=== PATIENT | female | born 1965 | race African-American/Black ===

== ENCOUNTER 2016-11-03 17:56 | Inpatient (IN) | payer MEDICARE, OTHER ==
[2016-11-03 18:46] LABS: Basophils # (A) 0.1 k/uL (0-0.2); Basophils % (A) 0 %; CH 25.9; CHCM 30.6; Eosinophils # (A) 0.4 k/uL (0-0.7); Eosinophils % (A) 3 %; HCT 36.1 % (34.0-46.0); HDW 2.58; HGB 11.1 gm/dL (11.4-16.0); Hypochromasia Moderate; Luc # (Auto) 0.29; Luc % (Auto) 2; Lymphocytes # (A) 1.9 k/uL (1.0-4.8); Lymphocytes % (A) 15 %; MCH 26.1 pg (25.0-35.0); MCHC 30.7 g/dL (31.0-37.0); MCV 85.2 fL (80.0-100.0); Mean Platelet Volume 7.8; Monocytes # (A) 0.6 k/uL (0-1.0); Monocytes % (A) 5 %; Neutrophils # (A) 9.1 k/uL (1.3-7.7); Neutrophils % (A) 74 %; RBC 4.23 m/uL (3.80-5.40); RDW 13.4 % (11.5-15.5); WBC 12.3 k/uL (3.8-10.6); WBC (Perox) 12.58
[2016-11-03 18:58] LABS: INR 1.1 (<1.1); Partial Thromboplastin Time 28.4 sec (22.0-30.0); Prothrombin Time 11.3 sec (9.0-12.0)
[2016-11-03 18:59] LABS: ALT 27 U/L (9-52); AST 26 U/L (14-36); Alkaline Phosphatase 123 U/L (38-126); Anion Gap 12 mmol/L; Blood Urea Nitrogen 15 mg/dL (7-17); Calcium 9.7 mg/dL (8.4-10.2); Carbon Dioxide 28 mmol/L (22-30); Chloride 101 mmol/L (98-107); Glucose 101 mg/dL (74-99); Non-African American GFR(MDRD) >60 (>60 ml/min/1.73 sqM); Potassium 4.4 mmol/L (3.5-5.1); Sodium 141 mmol/L (137-145); Total Bilirubin 0.4 mg/dL (0.2-1.3); Total Protein 8.8 g/dL (6.3-8.2)
[2016-11-03] MEDS ORDERED: RX INFO: IV CONTRAST WAS GIVEN 1 EACH MISC MISCELLANE PRN (19:09)
[2016-11-03] MEDS ORDERED: LEVOFLOXACIN 750MG-D5W PMX 750 MG in DEXTROSE/WATER 1 150ML.BAG IVPB STA (19:09)
[2016-11-03] MEDS ORDERED: MORPHINE SULFATE 4 MG/ML SYRINGE IV STA (19:15)
--- NOTE | 2016-11-03 19:28 | XR ---
EXAMINATION TYPE: XR chest 1V portable DATE OF EXAM: 11/03/2016 7:05 PM COMPARISON: 08/25/2010 HISTORY: Fever TECHNIQUE: Single frontal view of the chest is obtained. FINDINGS: Heart and mediastinum are normal. Lungs are clear. Diaphragm is normal. Bony thorax is int act. IMPRESSION: Normal chest. No adverse change compared to old exam.
[2016-11-03] MEDS ORDERED: ACETAMINOPHEN IVPB ONE (20:00)
[2016-11-03] MEDS ORDERED: IV VANCOMYCIN PER PHARMACY 1 EACH MISC MISCELLANE PRN (21:21)
[2016-11-03] MEDS ORDERED: NALOXONE 0.4 MG/ML 1 ML VIAL IV PRN (21:22)
[2016-11-03] MEDS ORDERED: MAGNESIUM HYDROXIDE 2,400 MG/10 ML CUP PEG/G-TUBE PRN (21:23)
[2016-11-03] MEDS ORDERED: NA PHOS,M-B/NA PHOS,DI-BA 133 ML ENEMA RECTAL PRN (21:23)
[2016-11-03] MEDS ORDERED: BISACODYL 10 MG SUPP RECTAL PRN (21:23)
[2016-11-03] MEDS ORDERED: ACETAMINOPHEN TAB 325 MG TAB PEG/G-TUBE PRN (21:23)
[2016-11-03] MEDS ORDERED: VANCOMYCIN 1,000 MG in SODIUM CHLORIDE 0.9% 250 ML IVPB STA (21:33)
--- NOTE | 2016-11-03 21:34 | ED ---
Skin/Abscess/FB HPI - General Chief complaint: Skin/Abscess/Foreign Body Stated complaint: facial abscess Time Seen by Provider: 11/03/16 18:11 Source: patient, EMS Mode of arrival: EMS Limitations: altered mental status, physical limitation - History of Present Illness Initial comments: This patient is a 51-year-old woman with history of [place]'s disease, [facility] for scalp drainage, erythema, and some erythema spreading to the neck. I am unable to obtain the exact onset of symptoms. There is family member at bedside who had noted things and had her transferred here. The patient is not able to give any history due to being nonverbal. MD complaint: abscess/boil -: unknown Tetanus Up to Date: unsure Location: head Improves with: none Worsens with: none Treatments Prior to Arrival: none - Related Data Home Medications Medication Instructions Recorded Confirmed Baclofen 10 mg PEG/G-TUBE TID@0600,1200,2100 11/03/16 11/03/16 Bisacodyl [Dulcolax] 10 mg RECTAL ONCE PRN 11/03/16 11/03/16 Chlorhexidine Gluconate [Peridex] 1 applic PO BID 11/03/16 11/03/16 Docusate [Colace] 100 mg PEG/G-TUBE BID@0800,1700 11/03/16 11/03/16 Jevity 1.5 Mark Liquid 1 can PEG/G-TUBE TID@0600,1400,2200 11/03/16 11/03/16 Levothyroxine Sodium [Synthroid] 100 mcg PEG/G-TUBE DAILY@0600 11/03/16 11/03/16 Magnesium Hydroxide [Milk of 2,400 mg PEG/G-TUBE ONCE PRN 11/03/16 11/03/16 Magnesia] Na Phos,M-B/Na Phos,Di-Ba [Fleet 133 ml RECTAL ONCE PRN 11/03/16 11/03/16 Adult] Vits A and D/White Pet/Lanolin [A 1 applic TOPICAL DAILY 11/03/16 11/03/16 and D Ointment] Previous Rx's Medication Instructions Recorded Cephalexin [Keflex] 500 mg PO Q8HR #30 cap 11/07/16 Acetaminophen [Tylenol] 650 mg PEG/G-TUBE Q8HR PRN #0 11/08/16 HYDROcodone/APAP 10-325MG [[place] 1 tab PEG/G-TUBE Q4HR PRN #60 tab 11/08/16 10-325] clonazePAM [KlonoPIN] 0.5 mg PEG/G-TUBE BID@0800,1700 11/08/16 #60 tab fentaNYL 50MCG/HR PATCH [Duragesic 1 patch TRANSDERM Q72H #10 patch 11/08/16 50MCG/HR] Allergies Allergy/AdvReac Type Severity Reaction Status Date / Time Penicillins Allergy Unknown Swelling Verified 11/05/16 12:52 paroxetine [From Paxil] Allergy Unknown Verified 11/03/16 18:58 Review of Systems ROS Statement: Those systems with pertinent positive or pertinent negative responses have been documented in the HPI. ROS Other: All systems not noted in ROS Statement are negative. Limitations: ROS unobtainable due to patients medical condition Past Medical History Past Medical History: CVA/TIA, Thyroid Disorder Additional Past Medical History / Comment(s): huntingtons,hypothyroidism,anemia, contractures, History of Any Multi-Drug Resistant Organisms: None Reported Additional Past Surgical History / Comment(s): peg tube placement Past Psychological History: No Psychological Hx Reported Smoking Status: Never smoker Past Alcohol Use History: None Reported Past Drug Use History: None Reported - Past Family History Brother(s) Additional Family Medical History / Comment(s): Huntingtons Sister(s) Additional Family Medical History / Comment(s): anemia General Exam Limitations: altered mental status, physical limitation General appearance: alert, cachectic Head exam: Present: other (There is diffuse muscle wasting) Eye exam: Present: PERRL. Absent: scleral icterus, conjunctival injection, periorbital swelling, periorbital tenderness ENT exam: Present: mucous membranes dry Neck exam: Present: other (There is erythema spreading from the hairline of the posterior auricular area on the left down the neck to just below the angle of the mandible. There is some soft tissue swelling there.). Absent: tenderness, lymphadenopathy Respiratory exam: Present: rhonchi. Absent: respiratory distress, wheezes, rales, stridor Cardiovascular Exam: Present: regular rate, tachycardia, normal heart sounds. Absent: systolic murmur, diastolic murmur, rubs, gallop GI/Abdominal exam: Present: soft, other (There is a feeding tube in the left upper quadrant, normal in appearance.). Absent: distended, tenderness, guarding , rebound Extremities exam: Present: normal capillary refill, other (Chronic contractures and diffuse muscle wasting). Absent: pedal edema Back exam: Present: normal inspection Neurological exam: Present: alert, other (The patient is not able to comply with neurologic exam) Skin exam: Present: warm, dry, intact, erythema (2 scalp the left posterior auricular area. There is some purulent drainage there as well.) Course Vital Signs 11/03/16 11/03/16 11/03/16 18:01 19:12 21:16 Temperature 98.6 F 99 F Pulse Rate 112 H 124 H 108 H Respiratory 16 16 20 Rate Blood Pressure 108/58 134/76 106/62 O2 Sat by Pulse 100 99 Oximetry 11/03/16 11/03/16 22:00 22:35 Temperature 98.4 F Pulse Rate 63 Respiratory 22 Rate Blood Pressure 109/63 O2 Sat by Pulse 99 100 Oximetry Medical Decision Making - Medical Decision Making Patient is a 51-year-old woman [facility] for drainage from the scalp and also some erythema to the left neck below the hairline. The differential includes cellulitis and Kerion amongst others. Patient is started on antibiotics on arrival and antifungal added. Case discussed with Dr. Mariscal who will admit the patient and also obtain infectious disease consult with Dr. Montelongo. - Lab Data Result diagrams: 11/08/16 08:50 11/08/16 08:50 Lab Results 11/03/16 11/03/16 11/03/16 Range/Units 18:30 18:30 18:30 WBC 12.3 H (3.8-10.6) k/uL RBC 4.23 (3.80-5.40) m/uL Hgb 11.1 L (11.4-16.0) gm/dL Hct 36.1 (34.0-46.0) % MCV 85.2 (80.0-100.0) fL MCH 26.1 (25.0-35.0) pg MCHC 30.7 L (31.0-37.0) g/dL RDW 13.4 (11.5-15.5) % Plt Count 340 (150-450) k/uL Neutrophils % 74 % Lymphocytes % 15 % Monocytes % 5 % Eosinophils % 3 % Basophils % 0 % Neutrophils # 9.1 H (1.3-7.7) k/uL Lymphocytes # 1.9 (1.0-4.8) k/uL Monocytes # 0.6 (0-1.0) k/uL Eosinophils # 0.4 (0-0.7) k/uL Basophils # 0.1 (0-0.2) k/uL Hypochromasia Moderate PT (9.0-12.0) sec INR (<1.1) APTT (22.0-30.0) sec Sodium 141 (137-145) mmol/L Potassium 4.4 (3.5-5.1) mmol/L Chloride 101 (98-107) mmol/L Carbon Dioxide 28 (22-30) mmol/L Anion Gap 12 mmol/L BUN 15 (7-17) mg/dL Creatinine 0.27 L (0.52-1.04) mg/dL Est GFR (MDRD) Af Amer >60 (>60 ml/min/1.73 sqM) Est GFR (MDRD) Non-Af >60 (>60 ml/min/1.73 sqM) Glucose 101 H (74-99) mg/dL Plasma Lactic Acid Jonny 0.8 (0.7-2.0) mmol/L Calcium 9.7 (8.4-10.2) mg/dL Total Bilirubin 0.4 (0.2-1.3) mg/dL AST 26 (14-36) U/L ALT 27 (9-52) U/L Alkaline Phosphatase 123 (38-126) U/L Total Protein 8.8 H (6.3-8.2) g/dL Albumin 3.7 (3.5-5.0) g/dL 11/03/16 Range/Units 18:30 WBC (3.8-10.6) k/uL RBC (3.80-5.40) m/uL Hgb (11.4-16.0) gm/dL Hct (34.0-46.0) % MCV (80.0-100.0) fL MCH (25.0-35.0) pg MCHC (31.0-37.0) g/dL RDW (11.5-15.5) % Plt Count (150-450) k/uL Neutrophils % % Lymphocytes % % Monocytes % % Eosinophils % % Basophils % % Neutrophils # (1.3-7.7) k/uL Lymphocytes # (1.0-4.8) k/uL Monocytes # (0-1.0) k/uL Eosinophils # (0-0.7) k/uL Basophils # (0-0.2) k/uL Hypochromasia PT 11.3 (9.0-12.0) sec INR 1.1 (<1.1) APTT 28.4 (22.0-30.0) sec Sodium (137-145) mmol/L Potassium (3.5-5.1) mmol/L Chloride (98-107) mmol/L Carbon Dioxide (22-30) mmol/L Anion Gap mmol/L BUN (7-17) mg/dL Creatinine (0.52-1.04) mg/dL Est GFR (MDRD) Af Amer (>60 ml/min/1.73 sqM) Est GFR (MDRD) Non-Af (>60 ml/min/1.73 sqM) Glucose (74-99) mg/dL Plasma Lactic Acid Jonny (0.7-2.0) mmol/L Calcium (8.4-10.2) mg/dL Total Bilirubin (0.2-1.3) mg/dL AST (14-36) U/L ALT (9-52) U/L Alkaline Phosphatase (38-126) U/L Total Protein (6.3-8.2) g/dL Albumin (3.5-5.0) g/dL - EKG Data -: EKG Interpreted by Al EKG shows normal: sinus rhythm, axis (Normal), intervals (Normal), QRS complexes (Normal), ST-T waves (Normal) Rate: tachycardia (Rate 108 bpm) Disposition Clinical Impression: Cellulitis Disposition: ADMITTED IP TO THIS [facility] Condition: Poor
[2016-11-03] MEDS ORDERED: NON-FORMULARY DRUG (Jevity 1.5 Cal Liquid 1 CAN) PEG/G-TUBE SCH (22:00)
[2016-11-03 22:04] LABS: Appearance,Urine Clear (Clear); Bacteria,Urine Occasional /hpf; Bilirubin,Urine Negative (Negative); Glucose,Urine (UA) Negative (Negative); Ketones,Urine Negative (Negative); Leukocyte Esterase,Urine Negative (Negative); Mucus,Urine Rare /hpf; Nitrite,Urine Negative (Negative); PH, Urine 6.5 (5.0-8.0); Particle Count 4745; Protein,Urine 1+ (Negative); RBC,Urine 55 /hpf (0-5); Specific Gravity,Urine 1.029 (1.001-1.035); Squamous Epithelial Cell,Urine <1 /hpf (0-4); UA Billing (MACRO vs. MICRO) MICRO; WBC,Urine 12 /hpf (0-5)
--- NOTE | 2016-11-03 22:39 | CT ---
EXAM: CT Head With Intravenous Contrast CLINICAL HISTORY: Reason: Pain, possible abscess TECHNIQUE: Axial computed tomography images of the head/brain with intravenous contrast. CTDI is 58 mGy and DLP is 1146.2 mGy-cm This CT exam was performed using one or more of the following dose reduction techniques: automated exposure control, adjustment of the mA and/or kV according to patient size, and/or use of iterative reconstruction technique. Coronal and sagittal reformatted images were created and reviewed. COMPARISON: No relevant prior studies available. FINDINGS: Brain: Chronic small vessel ischemic change and global volume loss. No mass effect or edema. No hemorrhage. No evolving territorial infarction. No abnormal enhancement. Ventricles: Unremarkable. No ventriculomegaly. Bones/joints: Unremarkable. No acute fracture. Soft tissues: 2.8 x 0.9 x 3.8-cm and 1.7 x 1 x 2.2-cm fluid collection within the left parietal scalp which may represent abscesses. Adjacent enhancement. No intracranial extension. Sinuses: Left maxillary sinus mucous retention cyst. Moderate opacification of the ethmoid air cells. Mild mucosal thickening of the left maxillary sinus and frontal sinuses. Mastoid air cells: Unremarkable as visualized. No mastoid effusion. IMPRESSION: 2.8 x 0.9 x 3.8-cm and 1.7 x 1 x 2.2-cm fluid collection within the left parietal scalp which may represent abscesses. Adjacent enhancement. No intracranial extension. Chronic small vessel ischemic change and global volume loss. No evolving territorial infarction.
--- NOTE | 2016-11-03 22:46 | CT ---
EXAM: CT Neck With Intravenous Contrast CLINICAL HISTORY: Reason: SWELLING TECHNIQUE: Axial computed tomography images of the neck with intravenous contrast. CTDI is 11 mGy and DLP is 290.2 mGy-cm. Repeat axial images were performed with a radiation dose of CTDI is 11 mGy and DLP is 227.7 mGy-cm This CT exam was performed using one or more of the following dose reduction techniques: automated exposure control, adjustment of the mA and/or kV according to patient size, and/or use of iterative reconstruction technique. Coronal and sagittal reformatted images were created and reviewed. COMPARISON: No relevant prior studies available. FINDINGS: Limitations: Study limited by motion. Nasopharynx: Unremarkable. Oropharynx: Unremarkable. No significant tonsillar enlargement. No peritonsillar abscess. Hypopharynx: Unremarkable. Larynx: Unremarkable. Normal epiglottis. Trachea: Unremarkable. Retropharyngeal space: Unremarkable. Submandibular/parotid glands: Unremarkable. Glands are normal in size. Thyroid: Unremarkable. No enlarged or calcified nodules. Bones/joints: Multilevel degenerative changes of the cervical spine. Fusion of the vertebral bodies of C5 and C6. Left facet joint fusion of C2/C3 and right C4/C5 facet joint fusion. No acute fracture. Soft tissues: 2.8 x 0.9 x 3.8-cm fluid collection within the left parietal scalp which may represent an abscess. Adjacent enhancement. No intracranial extension. Vasculature: No acute findings. Lymph nodes: Multiple left sided cervical chain lymph nodes with a left jugulodigastric lymph node measuring up to 1.6 cm. This is nonspecific and may be reactive. Sinuses: Left maxillary sinus mucous retention cyst. Moderate opacification of the ethmoid air cells. Mild mucosal thickening of the left maxillary sinus and frontal sinuses. Lung apices: Unremarkable as visualized. IMPRESSION: 1. Study limited by motion. 2. 2.8 x 0.9 x 3.8-cm fluid collection within the left parietal scalp which may represent an abscess. Adjacent enhancement. No intracranial extension. Multiple left sided cervical chain lymph nodes with a left jugulodigastric lymph node measuring up to 1.6 cm. This is nonspecific and may be reactive.
[2016-11-03] MEDS: SODIUM CHLORIDE 0.9% 1,000 ML IV SCH (23:49)
[2016-11-04] MEDS: HYDROcodone/APAP 10-325MG 1 EACH TAB PEG/G-TUBE PRN ×2 (02:38→20:31)
[2016-11-04] MEDS: BACLOFEN 10 MG TAB PEG/G-TUBE SCH ×3 (06:47→20:31)
[2016-11-04] MEDS: LEVOTHYROXINE 100 MCG TAB PEG/G-TUBE SCH (06:47)
[2016-11-04] MEDS ORDERED: DOCUSATE 100 MG CAP PO SCH (08:00)
[2016-11-04] MEDS: clonazePAM 0.5 MG TAB PEG/G-TUBE SCH ×2 (08:55→16:28)
[2016-11-04] MEDS: VANCOMYCIN 750 MG in SODIUM CHLORIDE 0.9% 250 ML IVPB SCH ×2 (08:55→20:31)
[2016-11-04] MEDS: ZINC OXIDE 20% OINT 28.4 GM TUBE TOPICAL SCH (08:57)
[2016-11-04] MEDS ORDERED: FLUCONAZOLE IVPB SCH ×2 (09:00)
[2016-11-04] MEDS ORDERED: NACL ISO OSM IVPB SCH ×2 (09:00)
[2016-11-04] MEDS ORDERED: SODIUM CHLORIDE 0.9% IVPB SCH ×2 (09:00)
[2016-11-04 09:57] LABS: Basophils # (A) 0.1 k/uL (0-0.2); Basophils % (A) 1 %; CH 25.5; CHCM 29.6; Eosinophils # (A) 0.6 k/uL (0-0.7); Eosinophils % (A) 7 %; HCT 32.1 % (34.0-46.0); HDW 2.54; Hypochromasia Marked; Luc # (Auto) 0.28; Luc % (Auto) 3; Lymphocytes # (A) 1.5 k/uL (1.0-4.8); Lymphocytes % (A) 17 %; MCHC 30.1 g/dL (31.0-37.0); MCV 86.4 fL (80.0-100.0); Monocytes # (A) 0.6 k/uL (0-1.0); Monocytes % (A) 7 %; Neutrophils # (A) 5.5 k/uL (1.3-7.7); Neutrophils % (A) 65 %; RBC 3.71 m/uL (3.80-5.40); RDW 13.5 % (11.5-15.5); WBC 8.6 k/uL (3.8-10.6); WBC (Perox) 8.46
[2016-11-04 10:00] LABS: HGB 9.6 gm/dL (11.4-16.0)
[2016-11-04 10:06] LABS: Anion Gap 10 mmol/L; Blood Urea Nitrogen 13 mg/dL (7-17); Calcium 9.4 mg/dL (8.4-10.2); Carbon Dioxide 28 mmol/L (22-30); Chloride 104 mmol/L (98-107); Glucose 81 mg/dL (74-99); Non-African American GFR(MDRD) >60 (>60 ml/min/1.73 sqM); Potassium 4.3 mmol/L (3.5-5.1); Sodium 142 mmol/L (137-145)
[2016-11-04] MEDS: FLUCONAZOLE IN NACL,ISO-OSM 200 MG in SALINE 1 100ML.BAG IVPB SCH ×2 (10:57→12:43)
[2016-11-04] MEDS: DOCUSATE ORAL SOLN 100 MG/10 ML CUP PEG/G-TUBE SCH ×2 (10:57→16:29)
[2016-11-04] MEDS ORDERED: Potassium Replacement Protocol 1 EACH MISC MISCELLANE PRN (12:03)
[2016-11-04] MEDS ORDERED: Magnesium Replacement Protocol 1 EACH MISC MISCELLANE PRN (12:03)
[2016-11-04] MEDS: MORPHINE SULFATE 4 MG/ML SYRINGE IV PRN (12:42)
--- NOTE | 2016-11-04 13:11 | P.HPIM ---
History of Present Illness H&P Date: 11/04/16 Chief Complaint: Drainage behind left ear This is a very unfortunate 51-year-old female with advanced [place] disease that is chronically contracted and nonverbal. Patient is a chronic resident at the local [facility]. For the past few days she was noted to have worsening swelling involving her left scalp. There was purulent drainage noted as well. Patient was sent to the emergency room for further evaluation. Computed tomography scan showed an abscess involving the left parietal scalp so patient was started on broad-spectrum antibiotic and was admitted to the hospital for further evaluation. Review of Systems Unable to review other system given medical condition Past Medical History Past Medical History: CVA/TIA, Thyroid Disorder Additional Past Medical History / Comment(s): huntingtons,hypothyroidism,anemia, contractures, History of Any Multi-Drug Resistant Organisms: None Reported Past Surgical History: Section Additional Past Surgical History / Comment(s): peg tube placement Past Anesthesia/Blood Transfusion Reactions: No Reported Reaction Past Psychological History: No Psychological Hx Reported Smoking Status: Never smoker Past Alcohol Use History: None Reported Past Drug Use History: None Reported - Past Family History Brother(s) Additional Family Medical History / Comment(s): Huntingtons Sister(s) Additional Family Medical History / Comment(s): anemia Medications and Allergies Home Medications Medication Instructions Recorded Confirmed Type Acetaminophen [Tylenol] 650 mg PEG/G-TUBE Q4H PRN 11/03/16 11/03/16 History Baclofen 10 mg PEG/G-TUBE TID@0600,1200,2100 11/03/16 11/03/16 History Bisacodyl [Dulcolax] 10 mg RECTAL ONCE PRN 11/03/16 11/03/16 History Chlorhexidine Gluconate [Peridex] 1 applic PO BID 11/03/16 11/03/16 History Docusate [Colace] 100 mg PEG/G-TUBE BID@0800,1700 11/03/16 11/03/16 History HYDROcodone/APAP 10-325MG [[place] 1 tab PEG/G-TUBE Q4HR PRN 11/03/16 11/03/16 History 10-325] Jevity 1.5 Mark Liquid 1 can PEG/G-TUBE TID@0600,1400,2200 11/03/16 11/03/16 History Levothyroxine Sodium [Synthroid] 100 mcg PEG/G-TUBE DAILY@0600 11/03/16 History Magnesium Hydroxide [Milk of 2,400 mg PEG/G-TUBE ONCE PRN 11/03/16 11/03/16 History Magnesia] Na Phos,M-B/Na Phos,Di-Ba [Fleet 133 ml RECTAL ONCE PRN 11/03/16 11/03/16 History Adult] Vits A and D/White Pet/Lanolin [A 1 applic TOPICAL DAILY 11/03/16 11/03/16 History and D Ointment] clonazePAM [KlonoPIN] 0.5 mg PEG/G-TUBE BID@0800,1700 11/03/16 11/03/16 History fentaNYL 50MCG/HR PATCH [Duragesic 1 patch TRANSDERM Q72H 11/03/16 11/03/16 History 50MCG/HR] Allergies Allergy/AdvReac Type Severity Reaction Status Date / Time paroxetine [From Paxil] Allergy Unknown Verified 11/03/16 18:58 Penicillins Allergy Unknown Verified 11/03/16 18:58 Physical Exam Vitals: Vital Signs Temp Pulse Pulse Resp BP BP Pulse Ox 11/04/16 07:00 98.4 F 87 16 92/55 100 11/03/16 23:15 98.5 F 97 20 93/54 100 11/03/16 22:35 100 11/03/16 22:00 98.4 F 63 22 109/63 99 Intake and Output 11/03/16 11/04/16 11/04/16 22:59 06:59 14:59 Intake Total 0 Balance 0 Intake: Oral 0 Other: Voiding Method Incontinent # Voids 0 Weight 40.5 kg 40.5 kg Patient Weight 11/05/16 06:59 Weight 40.5 kg General: The patient is awake and alert, she is contracted There is significant swelling involving the left scalp with evidence of fluid collection and possibly underlying abscess with pus drainage Neck: there is no JVD. Cardiovascular: Normal S1-S2, no S3-S4, no murmurs. Respiratory: Lungs clear to anterior chest auscultation bilaterally Gastrointestinal: Abdomen is soft, nontender. PEG tube in place Musculoskeletal: Patient is contracted Skin: Skin is warm and dry Results CBC & Chem 7: 11/04/16 08:41 11/04/16 08:41 Labs: Abnormal Lab Results - Last 24 Hours (Table) 11/03/16 11/04/16 11/04/16 Range/Units 21:50 08:41 08:41 RBC 3.71 L (3.80-5.40) m/uL Hgb 9.6 L D (11.4-16.0) gm/dL Hct 32.1 L (34.0-46.0) % MCHC 30.1 L (31.0-37.0) g/dL Creatinine 0.33 L (0.52-1.04) mg/dL Urine Protein 1+ H (Negative) Urine Blood Small H (Negative) Urine RBC 55 H (0-5) /hpf Urine WBC 12 H (0-5) /hpf Urine Bacteria Occasional H (None) /hpf Urine Mucus Rare H (None) /hpf Microbiology - Last 24 Hours (Table) 11/03/16 21:50 Urine Culture - Preliminary Urine,Catheterized Thrombosis Risk Factor Assmnt - Choose All That Apply Any of the Below Risk Factors Present?: Yes Each Factor Represents 1 point: Age 41-60 years, Medical pt on bed rest Other Risk Factors: Yes Each Risk Factor Represents 2 Points: Patient confined to bed Other congenital or acquired thrombophilia - If yes, enter type in comment: No Thrombosis Risk Factor Assessment Total Risk Factor Score: 4 Thrombosis Risk Factor Assessment Level: Moderate Risk Assessment and Plan Plan: 1. Left parietal scalp abscess with surrounding cellulitis 2. Advanced Nery disease 3. Hypothyroidism 4. Chronic dysphagia with chronic PEG tube placement 5. Moderate to severe protein caloric malnutrition Today, I reviewed her medication list and lab work results. Continue broad spectrum antibiotic. Awaiting culture and sensitivity. Infectious disease and ENT consulted for further evaluation. Continue PEG tube feeding as directed. Repeat lab work in the morning. Pain control. DVT prophylaxis.
--- NOTE | 2016-11-04 19:26 | CONS ---
DATE OF CONSULTATION: REASON FOR CONSULTATION: Scalp infection/scalp abscess. HISTORY: This is a 51-year-old black female with advanced [place] disease who is a resident at a local nursing facility. She has been noted to have over the past few days worsening swelling of the left posterior scalp. There was some purulent drainage noted also. She was sent to the ER for further evaluation. She had a CT scan of the soft tissues of the neck as well as brain CT. The soft tissue neck CT showed an abscess over the left parietal scalp 2.8 x 0.9 x 3.8 cm as well as some jugular digastric nodes on the left noted. There was no intracranial extension. This was cultured, which is in progress. Gram stain showed Gram-positive cocci and Gram-negative bacilli. She was started on vancomycin as well as antifungals empirically. She has been afebrile. She is nonverbal, and therefore history and remainder of the consultation overall is obtained from her previous reports and notes. Past medical history is positive for: 1. CVA/TIA. 2. Thyroid disorder. 3. [place] disease. 4. Hypothyroidism. 5. Contractures. PAST SURGICAL HISTORY: section. SURGICAL HISTORY: PEG tube. SOCIAL HISTORY: Does not smoke or drink alcohol. FAMILY HISTORY: Father with Nery disease. Medications will not be re-enumerated, as they are in the chart already. ALLERGIES: PAXIL and PENICILLIN PHYSICAL EXAM: Vital signs as noted above. GENERAL: The patient is awake and alert. She tends to lie on her left side and does have multiple contractures. HEENT: Head and scalp exam shows erythema and fluctuance, left parietal scalp with purulence draining spontaneously from an opening on the lower aspect of the abscess. This is foul-smelling, brown, creamy, purulent drainage. More could be expressed through the opening already noted. The ears show the canals to be clear. Tympanic membranes unremarkable and mobile. The nose shows no drainage or obstruction. Mouth and throat show mild dryness in the mouth but no abnormal masses noted. Neck is stiff and immobile. ASSESSMENT: Right parietal scalp abscess with secondary cellulitis. PLAN: I discussed the patient's case with her nurse, and her previous neck swelling that was present this morning is apparently markedly improved, likely due to the fact that the abscess is draining. This abscess is draining spontaneously and therefore does not require any further incision and drainage at this point. She is going to continue on the current antibiotics until cultures are returned, and then infectious disease road consultant may tailor the antibiotics to the cultures. Otherwise, continue local wound care. If there are questions or concerns, please feel free to contact me.
[2016-11-04] MEDS: SODIUM CHLORIDE 0.9% 1,000 ML IV SCH (20:31)
[2016-11-04] MEDS: HEPARIN SODIUM,PORCINE 5,000 UNIT/ML 1 ML VIAL SQ SCH (20:32)
[2016-11-04] MEDS ORDERED: LEVOFLOXACIN 500MG-D5W PMX 500 MG in DEXTROSE/WATER 1 100ML.BAG IVPB SCH (21:00)
--- NOTE | 2016-11-04 22:11 | CONS ---
DATE OF CONSULTATION: 11/04/2016 REASON FOR CONSULTATION: Scalp abscess. HISTORY OF PRESENT ILLNESS: The patient is a 51-year-old -[place] female with a past medical history significant for [place] disease in a patient who does have significant contractures. Patient was sent from the custodial for evaluation of increasing swelling of the left lateral scalp area with some purulent drainage. There is no clear history of any trauma to that area. No history of any high-grade fever at the custodial. For the same symptoms the patient has been evaluated by the ER physician. The patient did have a soft tissue neck CT done which did show a 2.8 x 0.9 x 3.8 cm fluid collection within the left parietal scalp which may represent an abscess. Patient did have local wound cultures obtained in addition to fungal culture. Patient has been started on fluconazole, Levaquin and vancomycin. Patient has been admitted to the hospital. ID was consulted for further recommendations regarding antibiotic therapy. Most of the information has been obtained from review of the chart and talking to the nursing staff, as the patient was able to provide a reliable history. Review of systems could not be reliably obtained, but the positive ones have been mentioned in HPI. Past medical history is significant for: 1. Nery disease. 2. History of hypothyroidism. 3. CVA/TIA. PAST SURGICAL HISTORY: and PEG tube placement. SOCIAL HISTORY: No history of smoking, drinking or drug use. FAMILY HISTORY: Mother had history of [place] disease. Sister with anemia. ALLERGIES: PENICILLIN and PAROXETINE. Reaction is not known. Medications currently include: 1. Vancomycin. 2. Narcan. 3. Levofloxacin. 4. Diflucan. 5. Colace. 6. Dulcolax. 7. Baclofen. On examination, her blood pressure is 96/43 with a pulse of 104, temperature 96.6. She is 100% on 2 L nasal cannula. General description is a middle-aged female lying in bed in no distress. No tachypnea or accessory muscle of respiration use. HEENT EXAMINATION: Slight pallor. No scleral icterus. The patient did have a area of the left parietal scalp. No significant foul smell. NECK: Trachea is central. No thyromegaly. LUNGS: Unlabored breathing. Clear to auscultation anteriorly. HEART: S1, S2. Regular rate and rhythm. ABDOMEN: Soft. No tenderness. EXTREMITIES: No edema of feet. Neurologically the patient is awake; however, orientation could not be determined. LABS: Hemoglobin 9.6, white count 8.6. Admission white count was 12.3 with a BUN of 13, creatinine 0.33. UA has been negative. Cultures were obtained which are currently pending. DIAGNOSTIC IMPRESSION AND PLAN: 1. Patient with left parietal abscess with some spontaneous drainage Still has some fluctuant area, more likely a Gram-positive skin sascha, less likely a Gram-negative or a fungal infection. 2. Patient has a PENICILLIN ALLERGY. That will limit the number of antibiotics it will be safe to use. PLAN: 1. Patient will continue on vancomycin, Pharmacy to dose, target trough of 15, to cover for likely Gram-positive skin sascha. Discontinue the Levaquin and the Diflucan. 2. The patient may benefit from further surgical drainage of this area for complete drainage of the abscess. That will help in the healing process and deep cultures. 3. Will follow up on the clinical condition and cultures to further adjust medication if needed. Thank you for this consultation. Will follow this patient along with you. MARGRET
[2016-11-05] MEDS: MORPHINE SULFATE 4 MG/ML SYRINGE IV PRN ×2 (01:36→05:50)
[2016-11-05] MEDS: SODIUM CHLORIDE 0.9% 1,000 ML IV SCH ×2 (01:36→14:43)
[2016-11-05] MEDS: BACLOFEN 10 MG TAB PEG/G-TUBE SCH ×3 (06:44→21:47)
[2016-11-05] MEDS: LEVOTHYROXINE 100 MCG TAB PEG/G-TUBE SCH (06:44)
[2016-11-05] MEDS ORDERED: VANCOMYCIN TROUGH DUE 1 EACH MISC MISCELLANE ONE (07:00)
[2016-11-05 08:52] VITALS: BMI 16.5
[2016-11-05] MEDS: DOCUSATE ORAL SOLN 100 MG/10 ML CUP PEG/G-TUBE SCH ×2 (09:15→17:26)
[2016-11-05] MEDS: HYDROcodone/APAP 10-325MG 1 EACH TAB PEG/G-TUBE PRN ×2 (09:16→17:26)
[2016-11-05] MEDS: clonazePAM 0.5 MG TAB PEG/G-TUBE SCH ×2 (09:16→17:26)
[2016-11-05] MEDS: VANCOMYCIN 750 MG in SODIUM CHLORIDE 0.9% 250 ML IVPB SCH ×2 (09:16→16:42)
[2016-11-05] MEDS: HEPARIN SODIUM,PORCINE 5,000 UNIT/ML 1 ML VIAL SQ SCH ×2 (09:17→21:46)
[2016-11-05] MEDS: ZINC OXIDE 20% OINT 28.4 GM TUBE TOPICAL SCH (09:31)
[2016-11-05 09:56] LABS: Basophils % (A) 0 %; CH 25.1; CHCM 28.6; Eosinophils # (A) 0.7 k/uL (0-0.7); Eosinophils % (A) 9 %; HDW 2.45; HGB 8.7 gm/dL (11.4-16.0); Hypochromasia Marked; Luc # (Auto) 0.14; Luc % (Auto) 2; Lymphocytes # (A) 1.2 k/uL (1.0-4.8); Lymphocytes % (A) 15 %; MCH 25.6 pg (25.0-35.0); MCV 88.1 fL (80.0-100.0); Mean Platelet Volume 8.1; Monocytes # (A) 0.4 k/uL (0-1.0); Monocytes % (A) 5 %; Neutrophils # (A) 5.4 k/uL (1.3-7.7); Neutrophils % (A) 69 %; RDW 13.4 % (11.5-15.5); WBC 7.8 k/uL (3.8-10.6); WBC (Perox) 7.98
[2016-11-05 10:11] LABS: Anion Gap 7 mmol/L; Blood Urea Nitrogen 10 mg/dL (7-17); Calcium 8.9 mg/dL (8.4-10.2); Carbon Dioxide 27 mmol/L (22-30); Chloride 106 mmol/L (98-107); Glucose 120 mg/dL (74-99); Magnesium 1.8 mg/dL (1.6-2.3); Non-African American GFR(MDRD) >60 (>60 ml/min/1.73 sqM); Potassium 4.3 mmol/L (3.5-5.1); Sodium 140 mmol/L (137-145)
--- NOTE | 2016-11-05 12:08 | P.PN ---
Subjective Patient appeared comfortable today. She is moving her extremities more and more alert compared to yesterday. Her abscess is draining spontaneously. Objective - Vital Signs Vital signs: Vital Signs Temp 99.3 F 11/05/16 07:00 Pulse 115 H 11/05/16 07:00 Resp 16 11/05/16 07:00 BP 98/62 11/05/16 07:00 Pulse Ox 97 11/05/16 07:00 Intake & Output 11/04/16 11/05/16 11/05/16 18:59 06:59 18:59 Intake Total 1030 Output Total 600 Balance 430 Weight 40.5 kg 45 kg 45 kg Intake: Intake, IV Titration 550 Amount Fluconazole in NaCl,Iso- 100 Osm 200 mg In Saline 1 100ml.bag @ 100 mls/hr IVPB DAILY JONA Rx#: [id number] Sodium Chloride 0.9% 1, 200 000 ml @ 75 mls/hr IV . [id number] JONA Rx#:[id number] Vancomycin 750 mg In 250 Sodium Chloride 0.9% 250 ml @ 125 mls/hr IVPB Q12HR@0800,2000 JONA Rx#: [id number] Tube Feeding 360 Other 120 Output: Urine 600 Other: Voiding Method Diaper Incontinent Incontinent # Voids 1 1 - Exam General: The patient is awake and alert, she is contracted. . Neck: The neck is supple, Swelling involving the left neck and scalp is decreasing compared to yesterday. There is intermittent drainage from the open abscess. Cardiovascular: Normal S1-S2, no S3-S4, no murmurs. Respiratory: Lungs clear to auscultation bilaterally Gastrointestinal: Abdomen is soft, nontender. PEG tube in place Musculoskeletal: Extremities are contracted. Skin: Skin is warm and dry - Labs CBC & Chem 7: 11/05/16 08:42 11/05/16 08:42 Labs: Abnormal Lab Results - Last 24 Hours (Table) 11/05/16 11/05/16 Range/Units 08:42 08:42 RBC 3.40 L (3.80-5.40) m/uL Hgb 8.7 L (11.4-16.0) gm/dL Hct 30.0 L (34.0-46.0) % MCHC 29.0 L (31.0-37.0) g/dL Creatinine 0.30 L (0.52-1.04) mg/dL Glucose 120 H (74-99) mg/dL Microbiology - Last 24 Hours (Table) 11/03/16 21:50 Urine Culture - Preliminary Urine,Catheterized Assessment and Plan Plan: 1. Left parietal scalp abscess with surrounding cellulitis: Currently draining spontaneously. Seen and evaluated by ENT. No need for surgical I&D 2. Advanced [place] disease 3. Hypothyroidism 4. Chronic dysphagia with chronic PEG tube placement 5. Moderate to severe protein caloric malnutrition Today, I reviewed her medication list and lab work results. Continue broad spectrum antibiotic. Awaiting culture and sensitivity. Infectious disease and ENT following. Continue PEG tube feeding as directed. Repeat lab work in the morning. Pain control. DVT prophylaxis.
[2016-11-05] MEDS: cefTRIAXone 2,000 MG in SODIUM CHLORIDE 0.9% 100 ML IVPB SCH (15:22)
[2016-11-06] MEDS: VANCOMYCIN 750 MG in SODIUM CHLORIDE 0.9% 250 ML IVPB SCH ×3 (00:41→15:11)
[2016-11-06] MEDS: SODIUM CHLORIDE 0.9% 1,000 ML IV SCH ×2 (04:36→17:39)
[2016-11-06] MEDS: MORPHINE SULFATE 4 MG/ML SYRINGE IV PRN ×2 (04:38→15:11)
[2016-11-06] MEDS: BACLOFEN 10 MG TAB PEG/G-TUBE SCH ×2 (06:28→11:39)
[2016-11-06] MEDS: LEVOTHYROXINE 100 MCG TAB PEG/G-TUBE SCH (06:28)
--- NOTE | 2016-11-06 08:25 | PN ---
DATE OF SERVICE: 11/05/2016 Reason for follow-up is left parietal/scalp area abscess. INTERVAL HISTORY: The patient is afebrile. She seemed to be more awake and alert to the R.N., is more responsive to her. No nausea or vomiting has been noted. More drainage from her left parietal abscess area. Evaluated by ENT, but recommended no further drainage. On examination, blood pressure is 91/63 with a pulse of 101, temperature 99.9. She is 96% on room air. General description is a middle-age female lying in bed in no distress. HEENT EXAMINATION: Parietal area still has slightly area of drainage. NECK: Trachea central. LUNGS: Unlabored breathing. Clear to auscultation anteriorly. HEART: S1, S2 with regular rate and rhythm. LABS: Hemoglobin 8.7, white count 7.8 with a BUN of 10, creatinine 0.30. Wound culture now showing gram-negative. Blood culture negative. DIAGNOSTIC IMPRESSION AND PLAN: Patient with left parietal abscess with spontaneous drainage. Culture now showing Gram-negative. The patient did have history of PENICILLIN ALLERGY. We did place multiple calls to her sister and daughter and they were not sure about true or the type of penicillin allergy. The patient will be given Rocephin 2 grams daily. RN has been advised to watch the patient closely during first infusion. Adjusting antibiotic further on the basis of the culture report. Continue supportive care.
[2016-11-06] MEDS: clonazePAM 0.5 MG TAB PEG/G-TUBE SCH ×2 (08:39→17:42)
[2016-11-06] MEDS: DOCUSATE ORAL SOLN 100 MG/10 ML CUP PEG/G-TUBE SCH ×2 (08:39→17:40)
[2016-11-06] MEDS: HEPARIN SODIUM,PORCINE 5,000 UNIT/ML 1 ML VIAL SQ SCH (08:39)
[2016-11-06] MEDS: ZINC OXIDE 20% OINT 28.4 GM TUBE TOPICAL SCH (08:40)
[2016-11-06] MEDS: HYDROcodone/APAP 10-325MG 1 EACH TAB PEG/G-TUBE PRN (08:53)
[2016-11-06 09:55] LABS: Basophils % (A) 0 %; CH 25.3; CHCM 28.8; Eosinophils # (A) 0.7 k/uL (0-0.7); Eosinophils % (A) 11 %; HCT 30.3 % (34.0-46.0); HDW 2.46; HGB 8.9 gm/dL (11.4-16.0); Hypochromasia Marked; Luc # (Auto) 0.15; Luc % (Auto) 3; Lymphocytes # (A) 1.3 k/uL (1.0-4.8); Lymphocytes % (A) 22 %; MCH 25.9 pg (25.0-35.0); MCHC 29.4 g/dL (31.0-37.0); Mean Platelet Volume 7.8; Monocytes # (A) 0.3 k/uL (0-1.0); Monocytes % (A) 4 %; Neutrophils # (A) 3.7 k/uL (1.3-7.7); Neutrophils % (A) 61 %; RBC 3.44 m/uL (3.80-5.40); RDW 13.5 % (11.5-15.5); WBC 6.1 k/uL (3.8-10.6); WBC (Perox) 6.51
[2016-11-06 10:10] LABS: Anion Gap 6 mmol/L; Blood Urea Nitrogen 8 mg/dL (7-17); Calcium 8.9 mg/dL (8.4-10.2); Carbon Dioxide 27 mmol/L (22-30); Chloride 108 mmol/L (98-107); Glucose 101 mg/dL (74-99); Magnesium 1.9 mg/dL (1.6-2.3); Non-African American GFR(MDRD) >60 (>60 ml/min/1.73 sqM); Potassium 4.4 mmol/L (3.5-5.1); Sodium 141 mmol/L (137-145)
--- NOTE | 2016-11-06 10:52 | P.PN ---
Subjective Patient appeared comfortable today. Objective - Vital Signs Vital signs: Vital Signs Temp 98.1 F 11/06/16 07:00 Pulse 95 11/06/16 07:00 Resp 22 11/06/16 07:00 BP 94/53 11/06/16 07:00 Pulse Ox 100 11/06/16 07:00 Intake & Output 11/05/16 11/06/16 11/06/16 18:59 06:59 18:59 Intake Total 640 480 320 Balance 640 480 320 Weight 45 kg Intake: Oral 0 Tube Feeding 640 480 320 Other: Voiding Method Incontinent Incontinent # Voids 1 - Exam General: The patient is awake and alert, she is contracted. . Neck: The neck is supple, Swelling involving the left neck and scalp is decreasing compared to yesterday. There is intermittent drainage from the open abscess. Cardiovascular: Normal S1-S2, no S3-S4, no murmurs. Respiratory: Lungs clear to auscultation bilaterally Gastrointestinal: Abdomen is soft, nontender. PEG tube in place Musculoskeletal: Extremities are contracted. Skin: Skin is warm and dry - Labs CBC & Chem 7: 11/06/16 09:22 11/06/16 09:22 Labs: Abnormal Lab Results - Last 24 Hours (Table) 11/06/16 11/06/16 Range/Units 09:22 09:22 RBC 3.44 L (3.80-5.40) m/uL Hgb 8.9 L (11.4-16.0) gm/dL Hct 30.3 L (34.0-46.0) % MCHC 29.4 L (31.0-37.0) g/dL Chloride 108 H (98-107) mmol/L Creatinine 0.28 L (0.52-1.04) mg/dL Glucose 101 H (74-99) mg/dL Microbiology - Last 24 Hours (Table) 11/03/16 21:50 Urine Culture - Final Urine,Catheterized Assessment and Plan Plan: 1. Left parietal scalp abscess with surrounding cellulitis: Currently draining spontaneously. Seen and evaluated by ENT. No need for surgical I&D 2. Advanced [place] disease 3. Hypothyroidism 4. Chronic dysphagia with chronic PEG tube placement 5. Moderate to severe protein caloric malnutrition Today, I reviewed her medication list and lab work results. Continue broad spectrum antibiotic. Awaiting culture and sensitivity. Infectious disease and ENT following. Continue PEG tube feeding as directed. Repeat lab work in the morning. Pain control. DVT prophylaxis.
[2016-11-06] MEDS: cefTRIAXone 2,000 MG in SODIUM CHLORIDE 0.9% 100 ML IVPB SCH (11:39)
[2016-11-06] MEDS ORDERED: HYDROcodone/APAP 10-325MG 1 EACH TAB ONE (23:00)
[2016-11-06] MEDS ORDERED: HEPARIN SODIUM,PORCINE 5,000 UNIT/ML 1 ML VIAL ONE (23:00)
[2016-11-06] MEDS ORDERED: BACLOFEN 10 MG TAB ONE (23:00)
[2016-11-07] MEDS: MORPHINE SULFATE 4 MG/ML SYRINGE IV PRN ×3 (02:25→17:17)
[2016-11-07] MEDS: LEVOTHYROXINE 100 MCG TAB PEG/G-TUBE SCH (06:33)
[2016-11-07] MEDS ORDERED: VANCOMYCIN TROUGH DUE 1 EACH MISC MISCELLANE ONE (07:00)
--- NOTE | 2016-11-07 08:35 | PN ---
DATE OF SERVICE: 11/06/2016 REASON FOR FOLLOW UP: Left parietal scalp wound. INTERVAL HISTORY: The patient is afebrile. She remains to be nonverbal, unable to report any history. No nausea vomiting and no diarrhea. On examination, blood pressure 94/53 with a pulse of 105, temperature 98.1, 100% on room air. General description is a middle-age female lying in bed in no distress. HEENT: Examination of the left parietal abscess site with decreased swelling and drainage. LUNGS: Unlabored breathing. Clear to auscultation anteriorly. HEART: S1, S2, regular rate and rhythm. LABS: Hemoglobin 8.9, white count 6.1 with a BUN of 8, creatinine 0.28. Wound culture with gram-negative bacilli. Blood culture negative. Diagnostic impression and plan: Patient with left parietal abscess, status post spontaneous drainage. Overall decrease in the swelling, redness and drainage. The patient currently covered with Zosyn that will be continued, to adjust antibiotic further on the basis of the culture report. Continue supportive care. [facility]
[2016-11-07 08:51] LABS: Basophils % (A) 0 %; CHCM 29.1; Eosinophils # (A) 0.5 k/uL (0-0.7); Eosinophils % (A) 9 %; HCT 29.8 % (34.0-46.0); HDW 2.48; HGB 8.7 gm/dL (11.4-16.0); Hypochromasia Marked; Luc # (Auto) 0.14; Luc % (Auto) 3; Lymphocytes # (A) 1.1 k/uL (1.0-4.8); Lymphocytes % (A) 21 %; MCH 25.1 pg (25.0-35.0); MCHC 29.1 g/dL (31.0-37.0); MCV 86.2 fL (80.0-100.0); Mean Platelet Volume 7.7; Monocytes # (A) 0.2 k/uL (0-1.0); Monocytes % (A) 5 %; Neutrophils # (A) 3.1 k/uL (1.3-7.7); Neutrophils % (A) 62 %; RBC 3.45 m/uL (3.80-5.40); RDW 13.4 % (11.5-15.5); WBC (Perox) 5.09
[2016-11-07 09:04] LABS: Anion Gap 7 mmol/L; Blood Urea Nitrogen 7 mg/dL (7-17); Calcium 8.8 mg/dL (8.4-10.2); Carbon Dioxide 29 mmol/L (22-30); Chloride 106 mmol/L (98-107); Glucose 83 mg/dL (74-99); Magnesium 1.9 mg/dL (1.6-2.3); Non-African American GFR(MDRD) >60 (>60 ml/min/1.73 sqM); Potassium 4.4 mmol/L (3.5-5.1); Sodium 142 mmol/L (137-145)
[2016-11-07] MEDS: VANCOMYCIN 750 MG in SODIUM CHLORIDE 0.9% 250 ML IVPB SCH ×3 (09:37→18:25)
[2016-11-07] MEDS: SODIUM CHLORIDE 0.9% 1,000 ML IV SCH (09:39)
[2016-11-07] MEDS: HEPARIN SODIUM,PORCINE 5,000 UNIT/ML 1 ML VIAL SQ SCH ×3 (09:41→23:03)
[2016-11-07] MEDS: BACLOFEN 10 MG TAB PEG/G-TUBE SCH ×4 (09:41→23:03)
[2016-11-07] MEDS: cefTRIAXone 2,000 MG in SODIUM CHLORIDE 0.9% 100 ML IVPB SCH (12:17)
[2016-11-07] MEDS: DOCUSATE ORAL SOLN 100 MG/10 ML CUP PEG/G-TUBE SCH ×2 (12:18→17:17)
[2016-11-07] MEDS: clonazePAM 0.5 MG TAB PEG/G-TUBE SCH ×2 (12:48→17:17)
[2016-11-07] MEDS: ZINC OXIDE 20% OINT 28.4 GM TUBE TOPICAL SCH (12:54)
--- NOTE | 2016-11-07 14:18 | P.PN ---
Subjective Patient appeared comfortable today. Objective - Vital Signs Vital signs: Vital Signs Temp 98.3 F 11/07/16 07:00 Pulse 92 11/07/16 08:00 Resp 16 11/07/16 08:00 BP 105/64 11/07/16 07:00 Pulse Ox 98 11/07/16 07:00 Intake & Output 11/06/16 11/07/16 11/07/16 18:59 06:59 18:59 Intake Total 640 480 480 Output Total 1 Balance 640 479 480 Weight 43 kg Intake: Tube Feeding 640 480 480 Output: Urine 1 Other: Voiding Method Incontinent Incontinent Incontinent # Voids 1 - Exam General: The patient is awake and alert, she is contracted. . Neck: The neck is supple, Swelling involving the left neck and scalp is decreasing compared to yesterday. There is intermittent drainage from the open abscess. Cardiovascular: Normal S1-S2, no S3-S4, no murmurs. Respiratory: Lungs clear to auscultation bilaterally Gastrointestinal: Abdomen is soft, nontender. PEG tube in place Musculoskeletal: Extremities are contracted. Skin: Skin is warm and dry - Labs CBC & Chem 7: 11/07/16 07:29 11/07/16 07:29 Labs: Abnormal Lab Results - Last 24 Hours (Table) 11/07/16 11/07/16 Range/Units 07:29 07:29 RBC 3.45 L (3.80-5.40) m/uL Hgb 8.7 L (11.4-16.0) gm/dL Hct 29.8 L (34.0-46.0) % MCHC 29.1 L (31.0-37.0) g/dL Creatinine 0.30 L (0.52-1.04) mg/dL Assessment and Plan Plan: 1. Left parietal scalp abscess with surrounding cellulitis: Currently draining spontaneously. Seen and evaluated by ENT. No need for surgical I&D 2. Advanced [place] disease 3. Hypothyroidism 4. Chronic dysphagia with chronic PEG tube placement 5. Moderate to severe protein caloric malnutrition Today, I reviewed her medication list and lab work results. Continue broad spectrum antibiotic. Awaiting culture and sensitivity. Infectious disease and ENT following. Continue PEG tube feeding as directed. Repeat lab work in the morning. Pain control. DVT prophylaxis.
[2016-11-07] MEDS: ceFAZolin 2 GM in SODIUM CHLORIDE 0.9% 100 ML IVPB SCH (18:30)
[2016-11-07] MEDS: HYDROcodone/APAP 10-325MG 1 EACH TAB PEG/G-TUBE PRN (23:29)
[2016-11-08] MEDS: ceFAZolin 2 GM in SODIUM CHLORIDE 0.9% 100 ML IVPB SCH ×2 (00:15→09:07)
[2016-11-08] MEDS: BACLOFEN 10 MG TAB PEG/G-TUBE SCH (06:41)
[2016-11-08] MEDS: LEVOTHYROXINE 100 MCG TAB PEG/G-TUBE SCH (06:41)
[2016-11-08 07:42] VITALS: BP 156/84; PULSE 108; RESP 16; TEMP 99.4
[2016-11-08] MEDS: HYDROcodone/APAP 10-325MG 1 EACH TAB PEG/G-TUBE PRN (08:14)
[2016-11-08] MEDS: DOCUSATE ORAL SOLN 100 MG/10 ML CUP PEG/G-TUBE SCH (08:14)
[2016-11-08] MEDS: HEPARIN SODIUM,PORCINE 5,000 UNIT/ML 1 ML VIAL SQ SCH (08:14)
[2016-11-08] MEDS: ZINC OXIDE 20% OINT 28.4 GM TUBE TOPICAL SCH (08:15)
[2016-11-08] MEDS: clonazePAM 0.5 MG TAB PEG/G-TUBE SCH (08:15)
[2016-11-08 09:40] LABS: Basophils % (A) 0 %; CH 25.4; CHCM 29.9; Eosinophils # (A) 0.3 k/uL (0-0.7); Eosinophils % (A) 5 %; HCT 31.4 % (34.0-46.0); HDW 2.51; HGB 9.5 gm/dL (11.4-16.0); Hypochromasia Marked; Luc % (Auto) 2; Lymphocytes % (A) 17 %; MCH 25.8 pg (25.0-35.0); MCHC 30.3 g/dL (31.0-37.0); MCV 85.1 fL (80.0-100.0); Mean Platelet Volume 8.8; Monocytes # (A) 0.3 k/uL (0-1.0); Monocytes % (A) 5 %; Neutrophils # (A) 4.1 k/uL (1.3-7.7); Neutrophils % (A) 72 %; RBC 3.69 m/uL (3.80-5.40); RDW 13.5 % (11.5-15.5); WBC 5.8 k/uL (3.8-10.6); WBC (Perox) 5.85
[2016-11-08 10:23] LABS: Anion Gap 12 mmol/L; Blood Urea Nitrogen 10 mg/dL (7-17); Calcium 9.4 mg/dL (8.4-10.2); Carbon Dioxide 22 mmol/L (22-30); Chloride 108 mmol/L (98-107); Glucose 122 mg/dL (74-99); Magnesium 1.9 mg/dL (1.6-2.3); Non-African American GFR(MDRD) >60 (>60 ml/min/1.73 sqM); Sodium 142 mmol/L (137-145)
[2016-11-08 10:31] LABS: Potassium 4.7 mmol/L (3.5-5.1)
--- NOTE | 2016-11-08 10:49 | PN ---
DATE OF SERVICE: 11/07/2016 REASON FOR FOLLOW-UP: Left parietal wound infection with Proteus. INTERVAL HISTORY: The patient is afebrile. She is relatively more awake, alert, breathing comfortably. Tolerating her tube feed. No nausea, vomiting or any diarrhea, unable to provide any history. On examination, blood pressure is 118/77, pulse of 96, temperature 98.7. She is 100% on room air. General description is a middle-age female lying in bed in no distress. HEENT: Left parotid area swelling and redness have decreased. No drainage noticed. LUNGS: Unlabored breathing. Clear to auscultation anteriorly. HEART: S1, S2. Regular rate and rhythm. LABS: Hemoglobin 8.7, white count 5, BUN of 7, creatinine 0.830. Wound culture with Proteus mirabilis and Staphylococcus aureus. DIAGNOSTIC IMPRESSION AND PLAN: Patient with left parietal abscess, status post drainage. Cultures with Proteus mirabilis and Staphylococcus aureus. Currently on Rocephin 2 gm daily that was switched to cefazolin 2 grams q.8 with a plan to finish therapy with p.o. Keflex 500 mg t.i.d. and close outpatient follow-up.
--- NOTE | 2016-11-08 11:05 | P.DS ---
Providers Date of admission: 11/03/16 21:22 Expected date of discharge: 11/08/16 Attending physician: Rosario Mariscal Consults: 11/04/16 12:02 Consult Physician Routine Consulting Provider: Jacques Cotto Consult Reason/Comments: scalp abscess, cervical lymphadenopathy Do you want consulting provider notified?: Yes [facility] Course: 1. Left parietal scalp abscess with surrounding cellulitis: drained spontaneously. Seen and evaluated by ENT. No need for surgical I&D. Finish antibiotic course with Keflex as prescribed by infectious disease 2. Advanced [place] disease 3. Hypothyroidism 4. Chronic dysphagia with chronic PEG tube placement 5. Moderate to severe protein caloric malnutrition Patient Condition at Discharge: Poor Plan - Discharge Summary New Discharge Prescriptions: Cephalexin [Keflex] 500 mg PO Q8HR #30 cap HYDROcodone/APAP 10-325MG [[place] 10-325] 1 tab PEG/G-TUBE Q4HR PRN #60 tab PRN Reason: Pain clonazePAM [KlonoPIN] 0.5 mg PEG/G-TUBE BID@0800,1700 #60 tab fentaNYL 50MCG/HR PATCH [Duragesic 50MCG/HR] 1 patch TRANSDERM Q72H #10 patch Discharge Medication List Baclofen 10 mg PEG/G-TUBE TID@0600,1200,2100 11/03/16 [History] Bisacodyl [Dulcolax] 10 mg RECTAL ONCE PRN 11/03/16 [History] Chlorhexidine Gluconate [Peridex] 1 applic PO BID 11/03/16 [History] Docusate [Colace] 100 mg PEG/G-TUBE BID@0800,1700 11/03/16 [History] Jevity 1.5 Mark Liquid 1 can PEG/G-TUBE TID@0600,1400,2200 11/03/16 [History] Levothyroxine Sodium [Synthroid] 100 mcg PEG/G-TUBE DAILY@0600 11/03/16 [History ] Magnesium Hydroxide [Milk of Magnesia] 2,400 mg PEG/G-TUBE ONCE PRN 11/03/16 [ History] Na Phos,M-B/Na Phos,Di-Ba [Fleet Adult] 133 ml RECTAL ONCE PRN 11/03/16 [History ] Vits A and D/White Pet/Lanolin [A and D Ointment] 1 applic TOPICAL DAILY [History] Cephalexin [Keflex] 500 mg PO Q8HR #30 cap 11/07/16 [Rx] Acetaminophen [Tylenol] 650 mg PEG/G-TUBE Q8HR PRN #0 11/08/16 [Rx] HYDROcodone/APAP 10-325MG [[place] 10-325] 1 tab PEG/G-TUBE Q4HR PRN #60 tab 11/08 [Rx] clonazePAM [KlonoPIN] 0.5 mg PEG/G-TUBE BID@0800,1700 #60 tab 11/08/16 [Rx] fentaNYL 50MCG/HR PATCH [Duragesic 50MCG/HR] 1 patch TRANSDERM Q72H #10 patch [Rx] Follow up Appointment(s)/Referral(s): Rosario Mariscal MD [Primary Care Provider] - 1-2 days Discharge Disposition: TRANSFER TO SNF/ECF
--- NOTE | 2016-11-08 19:05 | PN ---
DATE OF SERVICE: 11/08/2016 Reason for follow-up: Left parietal abscess with Proteus and methicillin susceptible Staphylococcus aureus. INTERVAL HISTORY: The patient is afebrile. He is awake and alert, did respond to simple comands , unable to provide reliable history. No nausea or vomiting has been noticed. No diarrhea. On examination, blood pressure 156/84 with a pulse of 108, temperature 98.4, she is 98% on room air. General description is a middle-age female lying in bed in no distress. HEENT EXAMINATION: The left parietal area swelling and redness has improved. No draining was noticed. LUNGS: Unlabored breathing. Clear to auscultation anteriorly. HEART: S1, S2. Regular rate and rhythm. LABS: Hemoglobin 10.5, white count 5.8 with a BUN of 10, creatinine 0.31. Wound culture with MSSA and Proteus mirabilis. DIAGNOSTIC IMPRESSION AND PLAN: Patient with left parietal abscess with spontaneous drainage. Cultures with Proteus and Methicillin-susceptible Staph aureus. He is doing well on cefazolin that will be switched to p.o. Keflex 500 mg q8hr for another 10 days. MTDD
--- NOTE | 2016-11-10 17:17 | CDI ---
In responding to this query, please exercise your independent professional judgment. The [facility] Coding Staff and Clinical Documentation Specialists appreciate your assistance in clarifying documentation, maintaining compliance with coding guidelines, accurately documenting patients condition and capturing severity of illness. The fact that a question is asked does not imply that any particular answer is desired or expected. Communication forms are a method of clarifying documentation and are not made part of the Legal Health Record. Thank you in advance for your clarification. Last Revision, April 2015 Documentation Clarification Form Date: 11/10/2016 5:01:00 PM From: Zainab Guerrero, [employer] Blank Handler Admit Date: 11/03/2016 9:22:00 PM Patient Name: Araceli Martinez I Visit Number: [id number] Discharge Date: Dr. Rosario Mariscal [place] to Severe Protein Caloria Malnutrition has been documented in the record. History/Risk Factors: Advanced [place] disease. Chronic dysphagia with PEG tube. Labs: Albumin/ Pre albumin/Total Protein: 3.7/8.8 Current BMI: 16.5 Loss of subcutaneous fat: Yes Loss of muscle mass: Yes Dietary Consult: Dietary consult x 2 Supplements/TPN: 160 In your professional opinion, can you please clarify which form of malnutrition you were treating/monitoring? Moderate Protein-Calorie Malnutrition Severe Protein-Calorie Malnutrition Other, please specify. Unable to determine Please document in your progress notes and discharge summary in order to capture severity of illness and risk of mortality. Include clinical findings that support your diagnosis. FYI: Press F11 to launch patient chart. Place X here if this finding has no clinical significance, is not applicable or if you are not able to provide any additional documentation. MTDD
== END 2016-11-08 13:57 | DRG 602 ==
LOC: EEVIPCON 17:56 → EC 17:56 → 4MS4W 21:22
PROVIDERS: ADMIT Internal Medicine; ATTEND Internal Medicine
DX: L02.811 Cutaneous abscess of head [any part, except face] (principal); E43 Unspecified severe protein-calorie malnutrition; G10 Huntington's disease; R13.10 Dysphagia, unspecified; E03.9 Hypothyroidism, unspecified; L03.811 Cellulitis of head [any part, except face]; B96.4 Proteus (mirabilis) (morganii) as the cause of diseases classified elsewhere; A49.01 Methicillin susceptible Staphylococcus aureus infection, unspecified site; Z88.0 Allergy status to penicillin; Z86.73 Personal history of transient ischemic attack (TIA), and cerebral infarction without residual deficits; Z79.899 Other long term (current) drug therapy; Z93.1 Gastrostomy status
CPT/HCPCS: 36415; 70460; 70491; 71010; 80048; 80053; 80202; 81001; 83605; 83735; 85025; 85610; 85730; 87040; 87070; 87077; 87086; 87102; 87186; 87205; 93005

== ENCOUNTER 2016-12-17 11:09 | Emergency (ER) | payer MEDICARE, OTHER ==
[2016-12-17] MEDS ORDERED: IV VANCOMYCIN PER PHARMACY 1 EACH MISC MISCELLANE PRN (11:49)
[2016-12-17] MEDS ORDERED: SODIUM CHLORIDE 0.9% 1,000 ML IV SCH (11:49)
[2016-12-17] MEDS ORDERED: RX INFO: IV CONTRAST WAS GIVEN 1 EACH MISC MISCELLANE PRN (11:52)
[2016-12-17] MEDS ORDERED: VANCOMYCIN 750 MG in SODIUM CHLORIDE 0.9% 250 ML IVPB STA (11:55)
[2016-12-17] MEDS ORDERED: AZTREONAM 1 GM in SODIUM CHLORIDE 0.9% 50 ML IVPB STA (11:57)
[2016-12-17] MEDS ORDERED: CEFEPIME 2 GM in SODIUM CHLORIDE 0.9% 50 ML IVPB STA (12:02)
--- NOTE | 2016-12-17 12:07 | ED ---
Skin/Abscess/FB HPI - General Chief complaint: Skin/Abscess/Foreign Body Stated complaint: Abscess Source: RN/MD, EMS Mode of arrival: EMS Limitations: no limitations - History of Present Illness Initial comments: Patient is a 51-year-old female with a past medical history of [place]'s disease coming in for evaluation for swelling and drainage to the left parietal/ occipital area. Patient was admitted in early October 2016 for concern for abscess to the parietal area. She is admitted for 5 days with IV antibiotics. CT imaging revealed questionable abscess and multiple lymph nodes in the left cervical chain area. Patient is nonverbal. Hemodynamically stable at this time. No other reported history per nursing facility. Review of systems not able to be completed secondary to the patient being nonverbal. - Related Data Home Medications Medication Instructions Recorded Confirmed Baclofen 10 mg PEG/G-TUBE TID@0600,1200,2100 11/03/16 12/17/16 Bisacodyl [Dulcolax] 10 mg RECTAL DAILY PRN 11/03/16 12/17/16 Chlorhexidine Gluconate [Peridex] 1 applic PO BID 11/03/16 12/17/16 Docusate [Colace] 100 mg PEG/G-TUBE BID@0800,1700 11/03/16 12/17/16 Levothyroxine Sodium [Synthroid] 100 mcg PEG/G-TUBE DAILY@0600 11/03/16 12/17/16 Magnesium Hydroxide [Milk of 2,400 mg PEG/G-TUBE DAILY PRN 11/03/16 12/17/16 Magnesia] Na Phos,M-B/Na Phos,Di-Ba [Fleet 133 ml RECTAL DAILY PRN 11/03/16 12/17/16 Adult] Vits A and D/White Pet/Lanolin [A 1 applic TOPICAL DAILY 11/03/16 12/17/16 and D Ointment] Previous Rx's Medication Instructions Recorded Acetaminophen [Tylenol] 650 mg PEG/G-TUBE Q8HR PRN #0 11/08/16 HYDROcodone/APAP 10-325MG [[place] 1 tab PEG/G-TUBE Q4HR PRN #60 tab 11/08/16 10-325] clonazePAM [KlonoPIN] 0.5 mg PEG/G-TUBE BID@0800,1700 11/08/16 #60 tab fentaNYL 50MCG/HR PATCH [Duragesic 1 patch TRANSDERM Q72H #10 patch 11/08/16 50MCG/HR] Clindamycin [Cleocin] 450 mg PO TID #21 capsule 12/17/16 Allergies Allergy/AdvReac Type Severity Reaction Status Date / Time Penicillins Allergy Unknown Swelling Verified 12/17/16 11:18 paroxetine [From Paxil] Allergy Unknown Verified 12/17/16 11:18 Review of Systems ROS Statement: Those systems with pertinent positive or pertinent negative responses have been documented in the HPI. ROS Other: All systems not noted in ROS Statement are negative. Past Medical History Past Medical History: CVA/TIA, Thyroid Disorder Additional Past Medical History / Comment(s): huntingtons,hypothyroidism,anemia, contractures, History of Any Multi-Drug Resistant Organisms: None Reported Past Surgical History: Section Additional Past Surgical History / Comment(s): peg tube placement Past Anesthesia/Blood Transfusion Reactions: No Reported Reaction Past Psychological History: No Psychological Hx Reported Smoking Status: Never smoker Past Alcohol Use History: None Reported Past Drug Use History: None Reported - Past Family History Brother(s) Additional Family Medical History / Comment(s): Huntingtons Sister(s) Additional Family Medical History / Comment(s): anemia General Exam Limitations: no limitations General appearance: alert, in no apparent distress, other (Nonverbal. Contracted which is at baseline.) Head exam: Present: atraumatic, normal inspection, other (There are 2 open lesions on the left parietal scalp. No fluctuance. Mild degree of soft tissue swelling to the left face and left upper neck. Some palpable lymph nodes in the left anterior cervical chain however it is difficult to discern secondary to the patient being contracted.) Eye exam: Present: normal appearance, PERRL, EOMI. Absent: scleral icterus, conjunctival injection, periorbital swelling ENT exam: Present: normal exam, mucous membranes moist, other (Very poor dentition with missing teeth.) Neck exam: Present: other (Contracted). Absent: tenderness, meningismus, lymphadenopathy Respiratory exam: Present: normal lung sounds bilaterally, other (Diminished breath sounds at the lung bases bilaterally.). Absent: respiratory distress, wheezes, rales, rhonchi, stridor Cardiovascular Exam: Present: regular rate, normal rhythm, normal heart sounds. Absent: systolic murmur, diastolic murmur, rubs, gallop, clicks GI/Abdominal exam: Present: soft, normal bowel sounds. Absent: distended, tenderness, guarding, rebound, rigid Extremities exam: Present: normal inspection, full ROM, normal capillary refill. Absent: tenderness, pedal edema, joint swelling, calf tenderness Back exam: Present: normal inspection Neurological exam: Present: alert, other (Patient is alert. Nonverbal. Limbs are severely contracted which is at baseline per previous chart review.) Psychiatric exam: Present: normal affect, normal mood Skin exam: Present: warm, dry, intact, normal color, other (As above). Absent: rash Course Vital Signs 12/17/16 12/17/16 12/17/16 11:16 12:15 13:21 Temperature 99.1 F Pulse Rate 110 H 108 H 92 Respiratory 18 16 16 Rate Blood Pressure 135/78 104/60 113/67 O2 Sat by Pulse 98 97 100 Oximetry Medical Decision Making - Medical Decision Making 1145: Patient presents for evaluation for questionable cellulitis/abscess to the left parietal area. I reviewed the previous documentation and microbiology to her wound cultures. I discussed the case with Dr. Abbott (ID). We'll order the sepsis order set and obtain a CT soft tissue neck and CT mastoid as the area of concern is over the mastoid. We'll start vancomycin and cefepime per ID. IV fluid bolus. IV maintenance. 06/30 SIRS crtieria as of right now. -Reviewed laboratory studies. No leukocytosis or lactic acidosis. She remains hemodynamically stable. I reviewed all of her CT imaging which revealed concern for parotiditis. No abscess or any other acute abnormality. No signs of John angina. I discussed the case with Dr. Abbott (ID). As there appears to be no signs of abscess with findings of parotiditis, comfortable discharging the patient home with a course of clindamycin. We'll provide discharge instructions to the nursing facility. Recommended close follow-up with either her own primary care physician or physician at her nursing facility. - Lab Data Result diagrams: 12/17/16 12:12 12/17/16 12:12 Lab Results 12/17/16 12/17/16 12/17/16 Range/Units 12:12 12:12 12:12 WBC 5.8 (3.8-10.6) k/uL RBC 4.21 (3.80-5.40) m/uL Hgb 10.8 L (11.4-16.0) gm/dL Hct 36.3 (34.0-46.0) % MCV 86.4 (80.0-100.0) fL MCH 25.8 (25.0-35.0) pg MCHC 29.9 L (31.0-37.0) g/dL RDW 14.6 (11.5-15.5) % Plt Count 342 (150-450) k/uL Neutrophils % 62 % Lymphocytes % 26 % Monocytes % 3 % Eosinophils % 6 % Basophils % 0 % Neutrophils # 3.6 (1.3-7.7) k/uL Lymphocytes # 1.5 (1.0-4.8) k/uL Monocytes # 0.2 (0-1.0) k/uL Eosinophils # 0.3 (0-0.7) k/uL Basophils # 0.0 (0-0.2) k/uL Hypochromasia Marked PT (9.0-12.0) sec INR (<1.1) APTT (22.0-30.0) sec Sodium 142 (137-145) mmol/L Potassium 4.5 (3.5-5.1) mmol/L Chloride 102 (98-107) mmol/L Carbon Dioxide 29 (22-30) mmol/L Anion Gap 11 mmol/L BUN 12 (7-17) mg/dL Creatinine 0.30 L (0.52-1.04) mg/dL Est GFR (MDRD) Af Amer >60 (>60 ml/min/1.73 sqM) Est GFR (MDRD) Non-Af >60 (>60 ml/min/1.73 sqM) Glucose 99 (74-99) mg/dL Plasma Lactic Acid Jonny 0.8 (0.7-2.0) mmol/L Calcium 9.7 (8.4-10.2) mg/dL Total Bilirubin 0.2 (0.2-1.3) mg/dL AST 23 (14-36) U/L ALT 40 (9-52) U/L Alkaline Phosphatase 153 H (38-126) U/L Total Protein 8.1 (6.3-8.2) g/dL Albumin 3.8 (3.5-5.0) g/dL Urine Color Urine Appearance (Clear) Urine pH (5.0-8.0) Ur Specific [place] (1.001-1.035) Urine Protein (Negative) Urine Glucose (UA) (Negative) Urine Ketones (Negative) Urine Blood (Negative) Urine Nitrite (Negative) Urine Bilirubin (Negative) Urine Urobilinogen (<2.0) mg/dL Ur Leukocyte Esterase (Negative) Urine RBC (0-5) /hpf Amorphous Sediment (None) /hpf 12/17/16 12/17/16 Range/Units 12:12 13:20 WBC (3.8-10.6) k/uL RBC (3.80-5.40) m/uL Hgb (11.4-16.0) gm/dL Hct (34.0-46.0) % MCV (80.0-100.0) fL MCH (25.0-35.0) pg MCHC (31.0-37.0) g/dL RDW (11.5-15.5) % Plt Count (150-450) k/uL Neutrophils % % Lymphocytes % % Monocytes % % Eosinophils % % Basophils % % Neutrophils # (1.3-7.7) k/uL Lymphocytes # (1.0-4.8) k/uL Monocytes # (0-1.0) k/uL Eosinophils # (0-0.7) k/uL Basophils # (0-0.2) k/uL Hypochromasia PT 10.8 (9.0-12.0) sec INR 1.1 (<1.1) APTT 27.6 (22.0-30.0) sec Sodium (137-145) mmol/L Potassium (3.5-5.1) mmol/L Chloride (98-107) mmol/L Carbon Dioxide (22-30) mmol/L Anion Gap mmol/L BUN (7-17) mg/dL Creatinine (0.52-1.04) mg/dL Est GFR (MDRD) Af Amer (>60 ml/min/1.73 sqM) Est GFR (MDRD) Non-Af (>60 ml/min/1.73 sqM) Glucose (74-99) mg/dL Plasma Lactic Acid Jonny (0.7-2.0) mmol/L Calcium (8.4-10.2) mg/dL Total Bilirubin (0.2-1.3) mg/dL AST (14-36) U/L ALT (9-52) U/L Alkaline Phosphatase (38-126) U/L Total Protein (6.3-8.2) g/dL Albumin (3.5-5.0) g/dL Urine Color Yellow Urine Appearance Turbid H (Clear) Urine pH 8.0 (5.0-8.0) Ur Specific [place] 1.018 (1.001-1.035) Urine Protein 1+ H (Negative) Urine Glucose (UA) Negative (Negative) Urine Ketones Negative (Negative) Urine Blood Negative (Negative) Urine Nitrite Negative (Negative) Urine Bilirubin Negative (Negative) Urine Urobilinogen 2.0 (<2.0) mg/dL Ur Leukocyte Esterase Negative (Negative) Urine RBC 16 H (0-5) /hpf Amorphous Sediment Many H (None) /hpf Disposition Clinical Impression: Parotiditis Disposition: HOME SELF-CARE Condition: Fair Instructions: Sialoadenitis (ED) Prescriptions: Clindamycin [Cleocin] 450 mg PO TID #21 capsule Referrals: Rosario Mariscal MD [Primary Care Provider] - 1-2 days
[2016-12-17] MEDS: SODIUM CHLORIDE 0.9% 500 ML IV SCH ×2 (12:17→12:50)
[2016-12-17 12:27] LABS: Basophils % (A) 0 %; CH 25.7; CHCM 29.8; Eosinophils # (A) 0.3 k/uL (0-0.7); Eosinophils % (A) 6 %; HCT 36.3 % (34.0-46.0); HDW 2.49; HGB 10.8 gm/dL (11.4-16.0); Hypochromasia Marked; Luc # (Auto) 0.14; Luc % (Auto) 2; Lymphocytes # (A) 1.5 k/uL (1.0-4.8); Lymphocytes % (A) 26 %; MCH 25.8 pg (25.0-35.0); MCHC 29.9 g/dL (31.0-37.0); MCV 86.4 fL (80.0-100.0); Mean Platelet Volume 8.4; Monocytes # (A) 0.2 k/uL (0-1.0); Monocytes % (A) 3 %; Neutrophils # (A) 3.6 k/uL (1.3-7.7); Neutrophils % (A) 62 %; RBC 4.21 m/uL (3.80-5.40); RDW 14.6 % (11.5-15.5); WBC 5.8 k/uL (3.8-10.6); WBC (Perox) 5.93
[2016-12-17 12:35] LABS: INR 1.1 (<1.1); Partial Thromboplastin Time 27.6 sec (22.0-30.0); Prothrombin Time 10.8 sec (9.0-12.0)
[2016-12-17 12:39] LABS: ALT 40 U/L (9-52); AST 23 U/L (14-36); Alkaline Phosphatase 153 U/L (38-126); Anion Gap 11 mmol/L; Blood Urea Nitrogen 12 mg/dL (7-17); Calcium 9.7 mg/dL (8.4-10.2); Carbon Dioxide 29 mmol/L (22-30); Chloride 102 mmol/L (98-107); Glucose 99 mg/dL (74-99); Non-African American GFR(MDRD) >60 (>60 ml/min/1.73 sqM); Potassium 4.5 mmol/L (3.5-5.1); Sodium 142 mmol/L (137-145); Total Bilirubin 0.2 mg/dL (0.2-1.3); Total Protein 8.1 g/dL (6.3-8.2)
--- NOTE | 2016-12-17 13:25 | XR ---
EXAMINATION TYPE: XR chest 1V portable DATE OF EXAM: 12/17/2016 COMPARISON: Chest x-ray November 03, 2016 HISTORY: Fever TECHNIQUE: Single AP portable frontal semiupright view of the chest is obtained. FINDINGS: There is no focal air space opacity, pleural effusion, or pneumothorax seen. The cardiac silhouette size is within normal limits. The osseous structures are intact. IMPRESSION: No suspicious acute infiltrate.
--- NOTE | 2016-12-17 13:26 | CT ---
EXAMINATION TYPE: CT posterior fossa w con DATE OF EXAM: 12/17/2016 COMPARISON: November 03, 2016. HISTORY: Lt facial, ear and mouth pain CT DLP: 233.3 mGycm. Automated Exposure Control for Dose Reduction was Utilized. TECHNIQUE: CT scanning of the posterior fossa was obtained. This was done after administration of 100 cc Omnipaque 300. FINDINGS: Mild cortical atrophy is noted. There is a hypodense focus in the left parietal lobe which is only se en on the last image most superiorly. There is no evidence of acute hemorrhage although this is subop timal due to contrast enhanced examination. The mastoid air cells are well aerated. There is some thi ckening noticed noted in the maxillary sinuses. The mandible is unremarkable. There is degenerative c hanges noted in both temporal mandibular joints. There is an abnormal appearance of the head of the r ight mandibular condyle. IMPRESSION: Hypodense area in the left parietal lobe only seen on the last images. CT scan of the brain is recomm ended.
[2016-12-17 13:30] LABS: Amorphous Sediment,Urine Many /hpf; Appearance,Urine Turbid (Clear); Bilirubin,Urine Negative (Negative); Glucose,Urine (UA) Negative (Negative); Ketones,Urine Negative (Negative); Leukocyte Esterase,Urine Negative (Negative); Nitrite,Urine Negative (Negative); Particle Count 14190; Protein,Urine 1+ (Negative); RBC,Urine 16 /hpf (0-5); Specific Gravity,Urine 1.018 (1.001-1.035); UA Billing (MACRO vs. MICRO) MICRO
--- NOTE | 2016-12-17 13:36 | CT ---
EXAMINATION TYPE: CT soft tissue neck w con DATE OF EXAM: 12/17/2016 1:09 PM COMPARISON: NONE HISTORY: Left facial pain here and mouth pain. CT DLP: 299.1 mGycm Automated exposure control for dose reduction was used. CONTRAST: CT scan of the neck is performed following with IV Contrast, patient injected with 100 mL of Omnipaqu e 300. Axial images are obtained, coronal and sagittal reformatted images are reviewed. FINDINGS: Airway: No gross abnormality seen. Parotid/submandibular glands: Increased enhancement is identified in the left parotid gland which co uld be due to a degree of parotiditis. The submandibular glands appear unremarkable although the left submandibular gland is slightly bulbous. Carotid/Vascular Structures: Unremarkable. Osseous Structures: Calvarium is unremarkable. Evaluation of the dental structures is suboptimal due to adjacent hardware artifact. Other: Thickening is noted in the maxillary sinuses. IMPRESSION: Increased enhancement is identified in the left parotid gland which could be due to paro tiditis.
--- NOTE | 2016-12-17 13:57 | CT ---
EXAMINATION TYPE: CT brain wo con DATE OF EXAM: 12/17/2016 HISTORY: History of Moody's disease. History of abscess to left occipital region of head. CT DLP: 995.50 mGycm. Automated Exposure Control for Dose Reduction was Utilized. TECHNIQUE: CT scan of the head is performed without contrast. COMPARISON: CT brain November 03, 2016. FINDINGS: There is no acute intracranial hemorrhage or midline shift identified. There is diffuse v entricular and sulcal prominence consistent with diffuse age-related cerebral atrophy. Asymmetric at rophy of bilateral frontal lobes is redemonstrated. The globes are intact and the visualized sinuses are clear. IMPRESSION: No acute intracranial hemorrhage or midline shift. There is mild diffuse age-related ce rebral atrophy redemonstrated. No significant change from prior.
[2016-12-17 15:13] VITALS: BP 98/53; PULSE 91; RESP 16; TEMP 98.6
[2016-12-17] MEDS ORDERED: VANCOMYCIN 750 MG in SODIUM CHLORIDE 0.9% 250 ML IVPB SCH (20:00)
== END 2016-12-17 16:05 | disposition home or self-care (01) ==
LOC: EC 11:09
DX: K11.20 Sialoadenitis, unspecified (principal); E03.9 Hypothyroidism, unspecified; Z79.899 Other long term (current) drug therapy; Z88.0 Allergy status to penicillin; Z88.8 Allergy status to other drugs, medicaments and biological substances; Z86.69 Personal history of other diseases of the nervous system and sense organs
CPT/HCPCS: 99284; 96365; 96366; 96367; 36415; 80053; 83605; 85025; 85610; 85730; 81001; 87040; 87086; 71010; 70491; 70450; 70481; J3370; J0692; Q9967

== ENCOUNTER 2017-05-18 08:14 | Day surgery (SDC) | payer MEDICARE, OTHER ==
[~2017-05-18 08:14] MED LIST: LACTATED RINGERS 1,000 ML IV SCH
[2017-05-18 08:51] VITALS: TEMP 98.9
[2017-05-18] MEDS ORDERED: LIDOCAINE 1% 20 ML VIAL (10MG/ML) FOR IV START INTRADERMA ONE (08:52)
[2017-05-18 08:54] LABS: Glucose,Whole Blood 82 mg/dL (75-99)
[2017-05-18] MEDS ORDERED: PROPOFOL 10 MG/ML 20 ML VIAL IV ONE (08:57)
--- NOTE | 2017-05-18 09:13 | P.PCN ---
Date of Procedure: 05/18/17 Procedure(s) Performed: Preoperative Dx: Malnutrition, dysphasia, malfunctioning PEG tube Postoperative Dx: Same Procedure: EGD with PEG tube replacement Anesthesia: Sedation Endoscopist: Dr. Cabrales Specimens: None Endoscopic Procedure: The patient was on the endoscopy table in the left decubitus position. She was sedated by anesthesia. The previous PEG tube was removed with traction. This was fully intact. The new 20[place] replacement tube was placed without difficulty. The Olympus gastroscope was inserted into the oropharynx and passed under direct visualization to the region of the distal stomach. The catheter was appropriately placed within the stomach. The visualized stomach had some mild inflammation. The esophagus appeared normal. The patient was then taken to the recovery room in stable condition per anesthesia guidelines. Recommendations: Resume tube feeds
[2017-05-18 09:37] VITALS: BP 128/81; PULSE 95; RESP 18
== END 2017-05-18 10:03 | disposition home or self-care (01) ==
LOC: ORWHC2ENDO 08:14
PROVIDERS: ATTEND Surgery
DX: K94.23 Gastrostomy malfunction (principal); E46 Unspecified protein-calorie malnutrition; R13.10 Dysphagia, unspecified; I69.891 Dysphagia following other cerebrovascular disease; R47.02 Dysphasia; E03.9 Hypothyroidism, unspecified; K59.00 Constipation, unspecified; Z88.8 Allergy status to other drugs, medicaments and biological substances; G10 Huntington's disease; M24.552 Contracture, left hip; M24.551 Contracture, right hip; M24.562 Contracture, left knee; M24.561 Contracture, right knee; Z79.2 Long term (current) use of antibiotics; Z79.891 Long term (current) use of opiate analgesic; Z79.899 Other long term (current) drug therapy; Z88.0 Allergy status to penicillin; R32 Unspecified urinary incontinence
CPT/HCPCS: 43246; J2704